=== PATIENT | female | born 1955 | race Caucasian/White ===

== ENCOUNTER 2016-11-24 03:16 | Emergency (ER) | payer MEDICARE ==
[~2016-11-24] VITALS: Ht 162.6 cm; Wt 115.0 kg
[2016-11-24 04:22] LABS: URINE BILIRUBIN NEGATIVE (NEG); URINE BLOOD SMALL (NEG); URINE GLUCOSE (UA) NEGATIVE (NEG); URINE KETONE SMALL (NEG); URINE LEUKOCYTE ESTERASE POSITIVE (NEG); URINE NITRITE NEGATIVE (NEG); URINE PROTEIN SMALL (NEG)
[2016-11-24 04:23] LABS: URINE APPEARANCE HAZY; URINE COLOR YELLOW
[2016-11-24 04:29] LABS: URINE BACTERIA 2+; URINE EPITHELIAL CELLS 0-1 /[HPF] (0-10); URINE MUCUS 2+; URINE RBC 0-1 /[HPF] (0-5)
[2016-11-24 05:38] LABS: BASO % 0.2 % (0-2); EOS % 4.5 % (0-7); EOSINOPHIL ABSOLUTE COUNT 0.4 tho/cmm (0.0-0.7); HCT-HEMATOCRIT 42.5 % (34.0-49.0); HGB-HEMOGLOBIN 14.2 gm/dl (12.0-15.5); IMMATURE GRANULOCYTES ABSOLUTE 0.02 tho/cmm (0-0.03); IMMATURE GRANULOCYTES PERCENT 0.2 % (0-0.3); LYMPH % 27.8 % (20-45); LYMPH ABSOLUTE COUNT 2.3 tho/cmm (0.8-4.5); MCHC MEAN CORPUSCULAR HGB CONC 33.4 % (32.0-36.0); MCV (MEAN CELL VOLUME) 86.7 fl (82.0-96.0); MONO % 9.4 % (0-12); MONOCYTE ABSOLUTE COUNT 0.8 tho/cmm (0.0-1.2); NEUTROPHIL ABSOLUTE COUNT 4.8 tho/cmm (1.6-8.0); NEUTROPHIL-AUTOMATED 4.8 tho/cmm (1.6-8.0); NEUTROPHILS % 57.9 % (40-80); PLATELET COUNT 350 tho/cmm (150-450); RED CELL DISTRIBUTION WIDTH 13.1 % (12.4-16.4); WHITE BLOOD COUNT 8.4 tho/cmm (4.0-10.0)
[2016-11-24] MEDS ORDERED: ZETIA10 M1 PO (05:54)
[2016-11-24] MEDS ORDERED: ABACAVIR300 M1 PO (05:54)
[2016-11-24] MEDS ORDERED: ROPINIROLE HCL0.5 M1 PO (05:55)
[2016-11-24] MEDS ORDERED: CYMBALTA30 M1 PO (05:55)
[2016-11-24] MEDS ORDERED: KLONOPIN1 M1 PO (05:55)
[2016-11-24] MEDS ORDERED: OXCARBAZEPINE300 M1 PO (05:56)
[2016-11-24] MEDS ORDERED: SINGULAIR10 M1 PO (05:56)
[2016-11-24] MEDS ORDERED: BENZTROPINE MESY1 M1 PO (05:57)
[2016-11-24 05:58] LABS: ALBUMIN 3.9 g/dl (3.5-5.0); ALCOHOL (ETOH) <10 mg/dl (<10); ALKALINE PHOSPHATASE 104 U/L (33-138); ALT/SGPT 27 U/L (12-78); ANION GAP 12 mmol/L (0-20); AST/SGOT 21 U/L (10-40); BILIRUBIN,TOTAL 0.6 mg/dl (0-1.5); BLOOD UREA NITROGEN 13 mg/dl (6-24); CARBON DIOXIDE-VENOUS 26 mmol/L (22-32); CHLORIDE 108 mmol/l (96-110); CREATININE 0.87 mg/dl (0.50-1.10); GLUCOSE 97 mg/dL (70-110); MAGNESIUM 2.2 mg/dl (1.8-2.6); POTASSIUM 3.7 mmol/L (3.7-5.1); SODIUM 142 mmol/L (135-145); eGFR VALUE FOR BLACK 85 mL/Min
[2016-11-24 06:03] LABS: TSH-THYROID STIMULATING HORM. 1.95 uIU/ml (0.40-3.80)
[2016-11-24] MEDS ORDERED: CEFDINIR300 M1 PO (07:12)
[2016-11-24] MEDS ORDERED: ZITHROMAX250 M1 PO (07:12)
== END 2016-11-24 07:21 ==
LOC: EDMED 03:16 → EDBD 03:16 → EDMED 07:21
PROVIDERS: Emergency Medicine
DX: R41.0 Disorientation, unspecified (principal); R91.1 Solitary pulmonary nodule; N39.0 Urinary tract infection, site not specified; F31.9 Bipolar disorder, unspecified; J45.909 Unspecified asthma, uncomplicated; G47.33 Obstructive sleep apnea (adult) (pediatric); Z90.49 Acquired absence of other specified parts of digestive tract; Z79.51 Long term (current) use of inhaled steroids; Z79.899 Other long term (current) drug therapy
CPT/HCPCS: G0480; J7030; Q9967